=== PATIENT | male | born 1965 | race Caucasian/White ===

== ENCOUNTER 2020-11-28 15:59 | Emergency (ER) | payer OTHER ==
[2020-11-28] MEDS ORDERED: BAMLANIVIMAB 700 MG, ETESEVIMAB 1,400 MG in SODIUM CHLORIDE 250 ML IVPB ONE (16:10)
[2020-11-28 16:49] VITALS: BMI 33.7
[2020-11-28 16:58] LABS: BASO % 0.9 % (0-2.0); EOS % 0.3 % (0-4.5); HEMATOCRIT 48.6 % (35.4-49); LYMPH % 18.2 % (8-40); MCH 28.8 pg (25.7-33.7); MCHC 32.8 g/dl (32.0-35.9); MEAN CELL VOLUME 87.7 fl (80-96); MEAN PLT VOLUME 9.6 fl (7.5-11.1); MONO % 9.4 % (3.8-10.2); NEUT % 71.2 % (42.8-82.8); PLATELET COUNT 153 K/MM3 (134-434); RBC 5.54 M/mm3 (4.00-5.60); RDW 13.6 % (11.9-15.9); WHITE BLOOD COUNT 4.5 K/mm3 (4.0-10.0)
[2020-11-28 17:17] LABS: POTASSIUM 4.2 mmol/L (3.5-5.1)
[2020-11-28 17:19] LABS: BLOOD UREA NITROGEN 10.2 mg/dL (7-18); CALCIUM 8.6 mg/dL (8.5-10.1)
[2020-11-28 17:20] LABS: ALBUMIN 3.8 g/dl (3.4-5.0)
[2020-11-28 17:24] LABS: BILIRUBIN,TOTAL 0.3 mg/dL (0.2-1); TOT PROT 7.5 g/dl (6.4-8.2)
[2020-11-28 19:14] VITALS: BP 140/92; PULSE 78
[2020-11-28 19:16] VITALS: TEMP 98
== END 2020-11-28 19:49 | disposition home or self-care (01) ==
LOC: JCOVINFU 15:59
DX: U07.1 COVID-19 (principal)
CPT/HCPCS: 36415; 80053; 85025; 99284-25; M0239; Q0239; Q0245